=== PATIENT | male | born 1950 | race Caucasian/White ===

== ENCOUNTER 2024-01-15 09:31 | Day surgery (SDC) | payer MEDICARE, SELFPAY ==
[2024-01-11 13:36] VITALS: BMI 26.4
[2024-01-15 09:49] VITALS: BP 155/84; PULSE 64; RESP 18; TEMP 36.2; O2SAT 96
[2024-01-15] MEDS: LACTATED RINGERS 1000ML 1,000 ML 25 ML IV (10:03)
--- NOTE | 2024-01-15 10:06 | P.PNANES_ITS ---
[facility] Disclaimer: The information contained in this section may have been updated after the patient was seen, as this information can be updated by other users. Medical History Skin cancer No significant past medical history No significant past medical history Family History Other Lung cancer Stroke Social History Smoking Status: Current every day smoker alcohol intake: never substance use type: denies use current occupational status: retired and disabled Travel in the last 8 weeks: Inside the [place] caffeine: Yes [facility] Anesthesia Checklist Patient Identification Patient Identification: Arm Band and Verbal (Name & ) Structural Data Admitted From: Home Planned Operative Procedure/s: Colonoscopy Consent for Planned Operative Procedure(s) Verified: Yes Verified Documents: Surgical Consent and History and Physical NPO Status Verified Time NPO: 00:00 Additional verifications Anesthesia Reactions: No Airway Assessment Mallampati Score:: Class III C-Spine Mobility Assessed: Yes TMJ Mobility Assessed: Yes Dentition: Poor Dentition Neurological Assessment Level of Consciousness: Awake Hx Seizures: No Numbness or tingling in extremities: No Anesthesia Plan Anesthesia Risk discussed: Yes Anesthesia Plan: Verified ASA Class: II Anesthesia Type: MAC
--- NOTE | 2024-01-15 10:12 | [facility].SCOPE ---
Procedure: Date: 01/15/24 Patient Date of :: 1950 Procedure Performed:: Colonoscopy with polypectomy by means other than snare Indications:: Screening Performing Provider:: Trevor Chakraborty MD Referring Provider:: . Sedation:: Monitored anesthesia care Procedure:: After informed consent was obtained the patient was taken to the endoscopy suite. Sedation ensued after the patient was transferred to the left lateral decubitus position. Pulse, blood pressure, and oxygen saturation were monitored throughout the procedure. Digital rectal exam revealed no significant abnormality. The colonoscope was placed in position. The entire colon was evaluated. The colonoscope was carefully removed and the patient was transferred to recovery in stable condition. Please see findings and specimens below for detail. Findings:: Bowel preparation moderate Significant tortuosity Fairly severe spasticity/lack of relaxation Scattered diverticulosis (worse in sigmoid) Polyp (see specimens) Specimens:: Lobulated sessile cecal polyp (cold biopsy forceps) Recommendations:: Timing of repeat colonoscopy is pending pathology will likely be between 2-3 years with extended/alternate bowel preparation secondary to moderate preparation, spasticity/lack of relaxation, and tortuosity. Complications:: No immediate Estimated blood obtained (mL): 1 Colonoscopy Component Colonoscopy Component Was a colonoscopy performed during today's procedure?: Yes Recommended follow up colonoscopy of at least 10 years?: No If no, follow up colonoscopy recommended in ___ years?: (See above) Reason for not recommending >/= 10 yr follow-up interval?: (See above)
[2024-01-15 10:19] VITALS: O2SAT 93
[2024-01-15 10:46] VITALS: BP 122/74; PULSE 60; RESP 18; TEMP 36.2; O2SAT 93
[2024-01-15 10:56] VITALS: BP 145/83; PULSE 62; RESP 18; O2SAT 96
[2024-01-15 11:06] VITALS: BP 130/70; PULSE 59; RESP 18; O2SAT 95
[2024-01-15 11:16] VITALS: BP 111/75; PULSE 56; RESP 18; O2SAT 95
== END 2024-01-15 11:16 | disposition home or self-care (01) ==
PROVIDERS: PCP Internal Medicine; Visit Provider Surgery
PROC: 0DJD8ZZ Inspection of Lower Intestinal Tract, Via Natural or Artificial Opening Endoscopic (ICD-10-PCS; CPT 45380; principal; 2024-01-15 10:30)
DX: Z12.11 Encounter for screening for malignant neoplasm of colon (principal); Z80.1 Family history of malignant neoplasm of trachea, bronchus and lung; K57.30 Diverticulosis of large intestine without perforation or abscess without bleeding; D12.0 Benign neoplasm of cecum
CPT/HCPCS: 45380; 88305; J7120